=== PATIENT | male | born 2000 | race Asian ===

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

== ENCOUNTER 2019-01-23 00:03 | Emergency (ER) | payer MEDICAID ==
[~2019-01-23] VITALS: Ht 180.3 cm; Wt 68.0 kg
[~2019-01-23 00:03] MED LIST changes: +AMOXICILLIN500 MG ORAL; +NKM; +TYLENOL EXTRA500 MG ORAL
[2019-01-23 00:17] VITALS: BP 131/82
--- NOTE | 2019-01-23 00:28 | Emergency Room Report ---
History of Present Illness General Chief Complaint: Multiple Trauma/Fall Source: Patient Present Illness HPI Patient present with complaints of right knee pain Reports that yesterday while playing basketball he fell onto the knee There has been continued swelling since then Pain is worse with trying to fully extend the leg denies any pelvic pain denies any ankle pain he also has some discomfort to the left mid tibial region Denies any lapse of consciousness or other trauma Allergies: Coded Allergies: Cat Dander (Unverified Allergy, Unknown, 05/18/15) Patient History Past Medical History: see triage record Pertinent Family History: none Reviewed Nursing Documentation: PMH: Agreed; PSxH: Agreed Nursing Documentation-PMH Past Medical History: No Stated History Review of Systems All Other Systems: negative except mentioned in HPI Physical Exam Vital Signs Date Time Temp Pulse Resp B/P (MAP) Pulse Ox O2 Delivery O2 Flow Rate FiO2 01/23/19 00:10 98.1 80 12 138/86 96 Room Air Sp02 EP Interpretation: reviewed, normal General Appearance: well appearing, no apparent distress Head: normocephalic, atraumatic Eyes: bilateral eye PERRL, bilateral eye EOMI ENT: hearing grossly normal, normal pharynx Neck: supple Respiratory: lungs clear, no retraction, no accessory muscle use Cardiovascular #1: regular rate, rhythm Musculoskeletal: swelling - Right knee, tender on palpation of the mid patella Neurologic: alert, oriented x3 Skin: other - Swelling is noted above involving the right knee some mild associated erythema Lymphatic: no adenopathy Medical Decision Making Diagnostic Impression: Primary Impression: Multiple injuries due to trauma Additional Impressions: Knee contusion Knee effusion ER Course Given the patient's history and presentation imaging's were obtained there is no obvious acute fracture Patient is ambulatory not require any further splint At this time stable for close outpatient follow-up Other X-Ray Diagnostic Results Other X-Ray Diagnostic Results : X-Ray ordered: Right knee # of Views/Limited Vs Complete: 3 View Indication: Pain EP Interpretation: Yes Interpretation: no dislocation, no fractures, other - Soft tissue swelling Impression: Other - Soft tissue swelling Electronically Signed by: Piper Ewing DO Last Vital Signs Date Time Temp Pulse Resp B/P (MAP) Pulse Ox O2 Delivery O2 Flow Rate FiO2 01/23/19 00:10 98.1 80 12 138/86 96 Room Air Status: improved Disposition: HOME, SELF-CARE Condition: Improved Scripts Ibuprofen* (MOTRIN*) 600 Mg Tablet 600 MG ORAL Q8H PRN for For Pain, #20 TAB 0 Refills Prov: Piper Ewing DO 01/23/19 Referrals: [facility]ERR[facility] (PCP) Additional Instructions: Patient is provided with the discharge instructions notified to follow up with primary doctor in the next 2-3 days otherwise return to the er with any worsening symptoms. Please note that this report is being documented using [employer] technology. This can lead to erroneous entry secondary to incorrect interpretation by the dictating instrument. Piper Ewing DO Jan 23, 2019 00:28
[2019-01-23] MEDS ORDERED: IBUPROFEN600 MG ORAL (02:04)
[2019-01-23 02:28] VITALS: BP 132/81
--- NOTE | 2019-01-23 13:28 | Diagnostic Imaging Report ---
Indication: Trauma, pain, twisted right knee while playing basketball one day ago, pain, swelling Technique: 4 views of the right knee Comparison: None Findings: No definite suprapatellar effusion. No acute fractures. No dislocations. The joint spaces are preserved Impression: Negative This agrees with the preliminary interpretation provided overnight by [facility] teleradiology service.
== END 2019-01-23 02:28 | disposition home or self-care (01) ==
LOC: EMR 00:22
DX: S80.01XA Contusion of right knee, initial encounter (principal); M25.461 Effusion, right knee; W19.XXXA Unspecified fall, initial encounter; Y93.67 Activity, basketball; Y92.9 Unspecified place or not applicable; Z91.048 Other nonmedicinal substance allergy status
CPT/HCPCS: 99283